=== PATIENT | female | born 1985 | race Caucasian/White ===

== ENCOUNTER → 2016-06-04 | Outpatient (CLI) | payer OTHER ==
[~2016-06-04] VITALS: Ht 162.6 cm; Wt 90.7 kg
[~2016-06-04] MED LIST: ACET-71 PO; AMBI10TA PO; ATIV1TAB7 PO; CARB20TAXR PO; CLOR7.5T3 PO; DOCU10CA PO; Desyrel PO; IBUP80TA PO; KEPP1000 PO; KEPPRA PO; LEXA1TAB PO; LIDOCAINE 2% INJ 100 MG/5 ML SDV (FOR ANES.) As Ordered ONE; MIRA3350 PO; MOTR200T44 PO; OVCOTAB PO; PROPOFOL 200 MG/20 ML VIAL As Ordered ONE; TOPA50TA7 PO; TRAN7.5T PO; ULTR50TA PO; VIMP100T PO; VIMP200T PO; VITAPRTA PO; ZOFR20TA PO; ZOFR20TA SL
[2016-06-04] MEDS: NS 1,000 ML IV SCH ×2 (11:00→11:37)
--- NOTE | 2016-06-04 12:25 | ROOR ---
Patient Name: Wanda Caldera Procedure Date: 06/04/2016 12:14 PM Date of : 1985 Age: 31 Room: [facility] Gender: Female Note Status: Finalized Procedure: Upper GI endoscopy Indications: Abdominal pain in the right upper quadrant, Nausea with vomiting Providers: Christopher COTTRELL MD Referring MD: Dione JOHNSON DO Requesting Provider: Medicines: Monitored Anesthesia Care Complications: No immediate complications. Procedure: Pre-Anesthesia Assessment: - The heart rate, respiratory rate, oxygen saturations, blood pressure, adequacy of pulmonary ventilation, and response to care were monitored throughout the procedure. The Endoscope was introduced through the mouth, and advanced to the third part of duodenum. The upper GI endoscopy was accomplished without difficulty. The patient tolerated the procedure well. Findings: The esophagus was normal. The stomach was normal. The examined duodenum was normal. Impression: - Normal esophagus. - Normal stomach. - Normal examined duodenum. - No specimens collected. Recommendation: - Observe patient's clinical course. - Continue present medications. Christopher Cottrell MD Christopher COTTRELL MD 06/04/2016 12:25:02 PM This report has been signed electronically. Number of Addenda: 0 Note Initiated On: 06/04/2016 12:14 PM Estimated Blood Loss: Estimated blood loss: none.
--- NOTE | 2016-06-04 12:41 | ROOR ---
Patient Name: Wanda Caldera Procedure Date: 06/04/2016 12:15 PM Date of : 1985 Age: 31 Room: [facility] Gender: Female Note Status: Finalized Procedure: Colonoscopy Indications: Generalized abdominal pain, Abdominal pain in the right upper quadrant, Irritable bowel syndrome with constipation, Constipation Providers: Christopher COTTRELL MD Referring MD: Dione JOHNSON DO Requesting Provider: Medicines: Monitored Anesthesia Care Complications: No immediate complications. Procedure: Pre-Anesthesia Assessment: - The heart rate, respiratory rate, oxygen saturations, blood pressure, adequacy of pulmonary ventilation, and response to care were monitored throughout the procedure. The Colonoscope was introduced through the anus and advanced to 5 cm into the ileum. The colonoscopy was performed without difficulty. The patient tolerated the procedure well. The quality of the bowel preparation was good. Findings: The perianal and digital rectal examinations were normal. The terminal ileum appeared normal. The entire examined colon appeared normal on direct and retroflexion views. Small Internal Hemorrhoids. Impression: - The examined portion of the ileum was normal. - The entire examined colon is normal on direct and retroflexion views. - No specimens collected. - (Irritable Bowel Syndrome/IBS-C suspected.) Recommendation: - Continue present medications. - Use Bentyl (dicyclomine) 10 mg PO Q 4-6 hrs PRN 30 min AC. - Miralax 1 capful (17 grams) in 8 ounces of water PO BID. Christopher Cottrell MD Christopher COTTRELL MD 06/04/2016 12:40:55 PM This report has been signed electronically. Number of Addenda: 0 Note Initiated On: 06/04/2016 12:15 PM Estimated Blood Loss: Estimated blood loss: none. Estimated blood loss: none.
[2016-06-04 13:05] VITALS: BP 128/80
== END | disposition home or self-care (01) ==
LOC: M OPP 11:22
PROVIDERS: ATTEND Internal Medicine Gastroenterology
DX: K64.8 Other hemorrhoids (principal); R10.11 Right upper quadrant pain; K58.1 Irritable bowel syndrome with constipation; K59.00 Constipation, unspecified; R11.2 Nausea with vomiting, unspecified; F41.9 Anxiety disorder, unspecified; G43.909 Migraine, unspecified, not intractable, without status migrainosus; K55.1 Chronic vascular disorders of intestine; G40.909 Epilepsy, unspecified, not intractable, without status epilepticus; K62.5 Hemorrhage of anus and rectum; M41.9 Scoliosis, unspecified; Z80.9 Family history of malignant neoplasm, unspecified; Z88.8 Allergy status to other drugs, medicaments and biological substances; Z79.899 Other long term (current) drug therapy

== ENCOUNTER → 2016-07-19 | Outpatient (REF) | payer OTHER ==
[~2016-07-19] MED LIST changes: -LIDOCAINE 2% INJ 100 MG/5 ML SDV (FOR ANES.) As Ordered ONE; -PROPOFOL 200 MG/20 ML VIAL As Ordered ONE
== END ==
LOC: M LAB REF 17:10
PROVIDERS: ATTEND Family Medicine
DX: D48.5 Neoplasm of uncertain behavior of skin (principal)

== ENCOUNTER → 2016-07-23 | Outpatient (CLI) | payer OTHER ==
[2016-07-23 17:11] LABS: ANION GAP 8 MEQ/L (8-16); BLOOD UREA NITROGEN 10 MG/DL (7-18); CALCIUM LEVEL 10.1 MG/DL (8.5-10.1); CARBON DIOXIDE LEVEL 26 MEQ/L (21-32); CHLORIDE LEVEL 105 MEQ/L (98-107); CREATININE FOR GFR 0.65 MG/DL (0.55-1.02); GLOMERULAR FILTRATION RATE > 60.0 (>60); GLUCOSE, FASTING 80 MG/DL (70-105); POTASSIUM SERUM 4.4 MEQ/L (3.5-5.1); SODIUM LEVEL 139 MEQ/L (136-145)
== END ==
LOC: M WUC 12:03
PROVIDERS: ATTEND Physician Assistant
DX: M62.82 Rhabdomyolysis (principal)

== ENCOUNTER → 2016-09-14 | Outpatient (CLI) | payer OTHER ==
--- NOTE | 2016-09-14 20:56 | REP ---
Clinical: Pelvic pain. Technique: Transabdominal pelvic ultrasound followed by transvaginal examination for better evaluation of the endometrium and adnexa with color Doppler evaluation of the ovaries. Findings: Heterogeneous anteverted uterus measures 9.3 x 4.4 x 5.1 cm. Endometrial complex measures 16.3 mm thickness. No discrete uterine or endometrial abnormalities are appreciated. The bilateral ovaries are normal in appearance and vascularity without evidence for torsion and demonstrate few normal follicles. Right ovary measures 2.5 x 2.0 x 1.3 cm; RI= 0.56. Left ovary measures 3.0 x 2.2 x 2.4 cm; normal flow identified. No free fluid or adnexal mass lesion. Bladder is normal and measures 8.9 x 5.2 x 5.7 cm. Impression: Relatively normal pelvic ultrasound. No free fluid. Normal ovaries without torsion. Signed by Behzad Easley MD 09/14/2016 08:48 P
== END ==
LOC: M SMT 14:40
PROVIDERS: ATTEND Obstetrics & Gynecology
DX: R10.2 Pelvic and perineal pain (principal)

== ENCOUNTER → 2016-09-21 | Outpatient (CLI) | payer OTHER ==
[2016-09-21 18:32] LABS: BASO % 0.6 % (0.0-1.0); EOS # 0.1 K/mm3 (0.0-0.50); LARGE UNSTAINED CELL # 0.1 K/mm3 (0.0-0.4); LARGE UNSTAINED CELL % 1.7 % (0.0-4.0); LYMPH # 1.9 K/mm3 (1.5-4.5); LYMPH % 33.1 % (24.0-44.0); MEAN CORPUSCULAR HEMOGLOBIN 30.6 pg (27.0-33.0); MEAN CORPUSCULAR HGB CONC 33.9 g/dl (32.0-36.5); MEAN CORPUSCULAR VOLUME 90.4 fl (80.0-96.0); MONO # 0.3 K/mm3 (0.0-0.8); MONO % 5.2 % (0.0-5.0); NEUTROPHILS # 3.4 K/mm3 (1.8-7.7); NEUTROPHILS % 58.5 % (36.0-66.0); PLATELET COUNT, AUTOMATED 273 k/mm3 (150-450); RED CELL DISTRIBUTION WIDTH 12.8 % (11.5-14.5); WHITE BLOOD COUNT 5.8 K/mm3 (4.0-10.0)
[2016-09-21 19:32] LABS: ALBUMIN 4.2 GM/DL (3.2-5.2); ALBUMIN/GLOBULIN RATIO 1.17 (1.00-1.93); ALKALINE PHOSPHATASE 109 U/L (45-117); ALT/SGPT 32 U/L (12-78); ANION GAP 8 MEQ/L (8-16); AST/SGOT 25 U/L (15-37); BILIRUBIN,TOTAL 0.3 MG/DL (0.2-1.0); BLOOD UREA NITROGEN 13 MG/DL (7-18); CARBON DIOXIDE LEVEL 25 MEQ/L (21-32); CHLORIDE LEVEL 105 MEQ/L (98-107); CHOLESTEROL LEVEL 207 MG/DL (<200); CREATININE FOR GFR 0.65 MG/DL (0.55-1.02); FREE T4 0.94 NG/DL (0.76-1.46); GLOMERULAR FILTRATION RATE > 60.0 (>60); GLUCOSE, FASTING 74 MG/DL (70-105); POTASSIUM SERUM 4.4 MEQ/L (3.5-5.1); SODIUM LEVEL 138 MEQ/L (136-145); TOTAL PROTEIN 7.8 GM/DL (6.4-8.2); TRIGLYCERIDES LEVEL 170 MG/DL (<150)
== END ==
LOC: M SMT 15:00
PROVIDERS: ATTEND Physician Assistant Medical
DX: H66.91 Otitis media, unspecified, right ear (principal); M54.2 Cervicalgia; Z13.220 Encounter for screening for lipoid disorders; Z13.29 Encounter for screening for other suspected endocrine disorder

== ENCOUNTER → 2016-11-01 | Outpatient (CLI) | payer OTHER ==
[~2016-11-01] MED LIST changes: -ACET-71 PO; +ACET1TAB16 PO; -KEPP1000 PO; +KEPP10002 PO; -TOPA50TA7 PO; +TOPA50TA8 PO; -ULTR50TA PO; +ULTR50TA8 PO
== END ==
LOC: M LAB 12:00
PROVIDERS: ATTEND Obstetrics & Gynecology
DX: N91.2 Amenorrhea, unspecified (principal)

== ENCOUNTER → 2017-03-16 | Outpatient (REF) | payer OTHER | LOC: M SFHCLERA 12:53 | PROVIDERS: ATTEND Nurse Practitioner Family | DX: J02.9 Acute pharyngitis, unspecified (principal) ==

== ENCOUNTER → 2017-03-21 | Outpatient (CLI) | payer OTHER ==
--- NOTE | 2017-03-21 12:29 | REP ---
CHEST X-RAY PA AND LATERAL: 03/21/2017 CLINICAL HISTORY: Wheezing, fever, cough. COMPARISON: 12/05/2015. FINDINGS: The lung [place] are somewhat hypoinflated. There is bibasilar atelectatic change. There is no pleural effusion, lateral pleural thickening apical scarring or pneumothorax. The heart, mediastinal and hilar contours are normal. Airway intact bony thorax shows no focal lesion. No free air under the diaphragm. IMPRESSION: 1. Bibasilar patchy atelectasis or infiltrates. The patient is somewhat hypoinflated. No effusion or other acute finding. Signed by Alden Palacio MD 03/22/2017 07:19 P
== END ==
LOC: M LRY 10:55
PROVIDERS: ATTEND Physician Assistant
DX: R06.2 Wheezing (principal); R50.9 Fever, unspecified; R05 Cough

== ENCOUNTER → 2017-05-02 | Outpatient (REF) | payer OTHER | LOC: M SFHCLERA 16:44 | DX: R35.0 Frequency of micturition (principal) ==

== ENCOUNTER → 2017-05-03 | Outpatient (REF) | payer OTHER | LOC: M LAB REF 17:11 | DX: R31.9 Hematuria, unspecified (principal) ==

== ENCOUNTER → 2017-05-05 | Outpatient (CLI) | payer OTHER | LOC: M RAD 07:14 | DX: N23 Unspecified renal colic (principal) | CPT/HCPCS: 74176 ==

== ENCOUNTER → 2017-06-07 | Outpatient (CLI) | payer OTHER | LOC: M LRY 15:44 | DX: M54.9 Dorsalgia, unspecified (principal); M47.895 Other spondylosis, thoracolumbar region | CPT/HCPCS: 72052; G0463 ==

== ENCOUNTER 2017-06-08 17:47 | Emergency (ER) | payer OTHER ==
[2017-06-08] MEDS: PERCOCET 5MG/325MG TAB PO (18:40)
[2017-06-08] MEDS: BACLOFEN 10 MG TAB PO (18:40)
== END 2017-06-08 19:30 | disposition home or self-care (01) ==
LOC: M ED 17:47
DX: S23.3XXA Sprain of ligaments of thoracic spine, initial encounter (principal); X50.0XXA Overexertion from strenuous movement or load, initial encounter; Y92.9 Unspecified place or not applicable; Y93.89 Activity, other specified; R56.9 Unspecified convulsions; F41.9 Anxiety disorder, unspecified; F32.9 Major depressive disorder, single episode, unspecified; Z79.899 Other long term (current) drug therapy; Z88.8 Allergy status to other drugs, medicaments and biological substances
CPT/HCPCS: 99283

== ENCOUNTER → 2017-07-21 | Outpatient (CLI) | payer OTHER ==
[2017-07-21 17:30] LABS: HCG, SERUM QUANTITATIVE < 1.0 MIU/ML
== END ==
LOC: M LRY 11:42
DX: N91.2 Amenorrhea, unspecified (principal)

== ENCOUNTER → 2017-09-10 | Outpatient (CLI) | payer OTHER | LOC: M LRY 15:57 | DX: R07.1 Chest pain on breathing (principal) | CPT/HCPCS: 93005 ==